=== PATIENT | female | born 1980 | race Caucasian/White ===

== ENCOUNTER 2018-08-15 09:19 | Outpatient (CLI) | payer BC, MEDICAID ==
[2018-08-15 13:23] LABS: BASOPHILS # (AUTO) 0.1 10^3/uL (0.0-0.1); BASOPHILS % (AUTO) 0.9 %; EOSINOPHILS # (AUTO) 0.3 10^3/uL (0.0-0.7); EOSINOPHILS % (AUTO) 3.5 %; HGB - HEMOGLOBIN 14.6 g/dL (12.0-16.0); LYMPHOCYTES # (AUTO) 2.5 10^3/uL (1.5-3.5); LYMPHOCYTES % (AUTO) 30.4 %; MEAN CORPUSCULAR HEMOGLOBIN 30.2 pg (27.0-31.0); MEAN CORPUSCULAR HGB CONC 32.4 g/dL (32.0-36.0); MEAN CORPUSCULAR VOLUME 93.2 fL (81.0-99.0); MEAN PLATELET VOLUME 10.1 fL (7.9-10.8); MONOCYTES # (AUTO) 0.6 10^3/uL (0.0-1.0); NEUTROPHILS # (AUTO) 4.7 10^3/uL (1.5-6.6); NEUTROPHILS % (AUTO) 57.7 %; PLT - PLATELET COUNT 359 10^3/uL (130-450); RED BLOOD COUNT 4.84 10^6/uL (4.20-5.40); RED CELL DISTRIBUTION WIDTH 12.2 % (12.0-15.0); WHITE BLOOD COUNT 8.2 x10^3/uL (4.8-10.8)
[2018-08-15 13:56] LABS: ALBUMIN 4.2 g/dL (3.2-5.5); ALBUMIN/GLOBULIN RATIO 1.3 (1.0-2.2); ALKALINE PHOSPHATASE 57 IU/L (42-121); ALT ALANINE AMINOTRANSFERASE 17 IU/L (10-60); AST ASPARTATE AMINOTRANSFERASE 18 IU/L (10-42); BILIRUBIN,TOTAL 0.6 mg/dL (0.2-1.0); BUN - BLOOD UREA NITROGEN 11 mg/dL (6-20); CALCIUM 9.3 mg/dL (8.5-10.3); CARBON DIOXIDE - CO2 22 mmol/L (21-32); CHLORIDE 108 mmol/L (101-111); CHOL/HDL RATIO 3.8 (<4.4); CHOLESTEROL 187 mg/dL; CREATININE 0.7 mg/dL (0.4-1.0); GFR - MDRD 94 (>89); GLUCOSE 107 mg/dL (70-100); HDL CHOLESTEROL 49 mg/dL; LDL CHOLESTEROL,CALCULATED 126 mg/dL; LDL/HDL RATIO 2.6 (<4.4); SODIUM 138 mmol/L (135-145); TOTAL PROTEIN 7.4 g/dL (6.7-8.2); VLDL CHOLESTEROL 12 mg/dL
[2018-08-15 14:06] LABS: HB2 TOTAL 15.3 g/dL; HEMOGLOBIN A1C 0.5 g/dL; HEMOGLOBIN A1C % 5.1 % (4.6-6.2)
== END 2018-08-15 09:20 | disposition home or self-care (01) ==
LOC: LAB.WCP 09:19
PROVIDERS: ATTEND Family Medicine
DX: E78.5 Hyperlipidemia, unspecified (principal); Z13.1 Encounter for screening for diabetes mellitus
CPT/HCPCS: 36415; 80053; 80061; 83036; 83721; 84443; 85025

== ENCOUNTER 2018-11-21 09:45 | Outpatient (CLI) | payer BC | END 2018-11-21 23:59 | disposition home or self-care (01) | LOC: LAB.R 09:45 | PROVIDERS: ATTEND Family Medicine | DX: R32 Unspecified urinary incontinence (principal) | CPT/HCPCS: 87086 ==

== ENCOUNTER 2018-11-21 23:24 | Emergency (ER) | payer BC ==
[2018-11-22] MEDS ORDERED: KETOROLAC 30 MG/ML VIAL IM STA
[2018-11-22] MEDS ORDERED: ACETAMINOPHEN 325 MG TABLET PO STA
[2018-11-22] MEDS ORDERED: METHOCARBAMOL 500 MG TABLET PO STA (00:01)
--- NOTE | 2018-11-22 00:04 | ED Physician Documentation ---
History of Present Illness - Stated complaint Stated Complaint: SHOULDER/NECK PX - Chief complaint Chief Complaint: Ext Problem - Additonal information Additional information: This is a 38-year-old female with a history of hysterectomy, who presents with pain in her left upper back and shoulder. Patient was cleaning her bathroom and she reached out to grab something and she developed pain in her left back just medial to her shoulder blade which radiates up towards her trapezius muscle and also over on her deltoid. When she abducts her shoulder, or twists her arm she has increased pain in this region. She denies weakness. She states that initially happened she had a little bit of tingling over the area and this resolved. She denies shortness of breath, denies any impact to the area. No headache at this time. Review of Systems Constitutional: denies: Fever Musculoskeletal: reports: Back pain Neurologic: denies: Focal weakness, Numbness Immunocompromised: denies: Immunocompromised PD PAST MEDICAL HISTORY - Past Medical History Past Medical History: Yes Cardiovascular: Other Respiratory: Asthma Neuro: Migraines, Fainting Endocrine/Autoimmune: None GI: Pancreatitis, Other MANUFACTURE SPECIALIST: Miscarriage(s) : Incontinence HEENT: None Psych: Depression, Anxiety, ADD/ADHD Musculoskeletal: Chronic back pain Derm: None Other Past Medical History: "hole in heart" - Past Surgical History Past Surgical History: Yes General: Cholecystectomy /MANUFACTURE SPECIALIST: Hysterectomy HEENT: Tonsil/Adenoidectomy - Present Medications Home Medications: Ambulatory Orders Medication Instructions Recorded Confirmed Acetaminophen 650 mg PO Q6HR #30 tablet 11/22/18 Ibuprofen 600 mg PO Q6H PRN #30 tablet 11/22/18 Methocarbamol 500 mg PO TID PRN #15 tablet 11/22/18 - Allergies Allergies/Adverse Reactions: Allergies Allergy/AdvReac Type Severity Reaction Status Date / Time nortriptyline AdvReac Anxiety Verified 11/21/18 23:32 prednisone AdvReac Emesis Verified 11/21/18 23:31 sucralfate AdvReac Cramps Verified 11/21/18 23:32 - Social History Does the pt smoke?: Yes Smoking Status: Current every day smoker Does the pt drink ETOH?: No Does the pt have substance abuse?: No Substance Use and Type: Marijuana - Immunizations Immunizations are current?: Yes - POLST Patient has POLST: No PD ED PE NORMAL - Vitals Vital signs reviewed: Yes - General General: Alert and oriented X 3, No acute distress - HEENT HEENT: Atraumatic, PERRL - Neck Neck: Supple, no meningeal sign - Cardiac Cardiac: RRR - Respiratory Respiratory: No respiratory distress, Clear bilaterally - Abdomen Abdomen: Non distended - Back Back: Other (There is tenderness on the trapezius muscle from the medial insertion site and upper paraspinous region up to the base of the neck and there is also tenderness in the deltoid. Movement of the deltoid reproduces this pain. The trapezius muscle feels tight and knotted.) - Derm Derm: Warm and dry - Extremities Extremities: No deformity - Neuro Neuro: Alert and oriented X 3, Other (5 out of 5 strength with hand squeeze, finger abduction elbow flexion and extension on the upper extremities. Sensation intact to light touch over the distribution of the radial, median, and ulnar nerves.) - Psych Psych: Normal mood, Normal affect Results - Vitals Vitals: Vital Signs - 24 hr 11/21/18 23:29 Temperature 36.8 C Heart Rate 85 Respiratory 16 Rate Blood Pressure 124/68 O2 Saturation 96 Oxygen O2 Source Room air - EKG (time done) 00:35 Other comments: Other comments (Rate 67, rhythm sinus, there is no ST segment elevation or depression, there are no T wave inversions. Intervals within normal limits. Carnation normal.) Procedures - General procedure General procedure: Procedure: Trigger point injection After discussing the risks and benefits of the procedure including infection, bleeding, pneumothorax, patient verbally consented to the procedure. The area of maximal tenderness was located over the trapezius muscle and paraspinous region and was prepped with an alcohol pad. Using a 27-gauge needle 0.5 cc of 1% lidocaine was injected in the 2 areas of maximal tenderness with care taken to stay superficially within the muscle. Afterwards there was no bleeding and patient had no new complaints, she tolerated the procedure well without immediate complication. PD MEDICAL DECISION MAKING - ED course Complexity details: considered differential (Strain, sprain, ACS, pneumothorax) ED course: Patient presents with pain in the trapezius region after reaching out while cleaning her bathroom. She has reproducible tenderness in the trapezius, which is palpably tight. This appears to be a muscle strain. She is low risk for ACS, the symptoms began in her back and are reproducible, and are clearly musculokeletal in origin. Her EKG shows no signs of ischemia or dysrhythmia, her history and work-up are inconsistent with a cardiac cause. Her breathing feels normal toher, her pain is reproducible, and her heart rate and oxygen saturation are within normal limits, she has no signs of DVT in her history and exam again make pulmonary embolism extraordinarily unlikely. Given her normal oxygen saturation her clear breath sounds bilaterally, and the fact that her pain is located over the trapezius and left deltoid, pneumothorax is also extremely unlikely. Patient was given toradol, Tylenol, and methocarbamol, and she had some relief with These medications. Trigger point injection was performed as noted above. Patient is feeling improved and well enough to go home. I prescribed her Tylenol, ibuprofen, and methocarbamol for breakthrough pain, discussed return precautions and supportive care. Patient was discharged home in care of her . Departure - Departure Disposition: , Self Care Clinical Impression: Muscle strain Condition: Good Instructions: Strains Sprains Tx Follow-Up: MAU BIRCH MD [Primary Care Provider] - As Needed Prescriptions: Acetaminophen 650 mg PO Q6HR #30 tablet Ibuprofen 600 mg PO Q6H PRN #30 tablet PRN Reason: Pain Methocarbamol 500 mg PO TID PRN #15 tablet PRN Reason: Pain Comments: You were seen today for neck/back/shoulder pain, you appear to have a strain of your trapezius muscle. You can ice the muscle for the first 24 hours, and afterwards you can try heat or alternating heat and ice. Take Tylenol and ibuprofen as directed, if these are not effective in controlling your pain you may also try some methocarbamol. Methocarbamol can be sedating so do not drive or operate machinery after taking it. If you develop worsening pain, any shortness of breath, weakness in your arm, or other concerning symptoms return to the emergency department.
[2018-11-22] MEDS ORDERED: LIDOCAINE 1% 2 ML VIAL SUBQ STA (00:50)
[2018-11-22 01:20] VITALS: BP 122/70
== END 2018-11-22 01:15 | disposition home or self-care (01) ==
LOC: ED 23:24
DX: S29.012A Strain of muscle and tendon of back wall of thorax, initial encounter (principal); X50.9XXA Other and unspecified overexertion or strenuous movements or postures, initial encounter; Y93.E9 Activity, other interior property and clothing maintenance; Y92.002 Bathroom of unspecified non-institutional (private) residence as the place of occurrence of the external cause; F17.200 Nicotine dependence, unspecified, uncomplicated; R32 Unspecified urinary incontinence
CPT/HCPCS: 20552; 87086; 93005; 96372; 99283; A9270

== ENCOUNTER 2018-12-05 11:01 | Outpatient (CLI) | payer BC ==
--- NOTE | 2018-12-08 00:39 | XRAY Report ---
Reason: NECK PAIN Procedure Date: 12/05/2018 Accession Number: [id number] / [id number] Procedure: XRN - Cervical Spine 2 View CPT Code: FULL RESULT: EXAM: CERVICAL SPINE RADIOGRAPHY EXAM DATE: 12/05/2018 11:31 AM. CLINICAL HISTORY: NECK PAIN. COMPARISONS: None TECHNIQUE: 3 views. FINDINGS: Alignment: No spondylolisthesis or scoliosis. Bones: The cervical vertebral bodies and posterior elements are well visualized from the skull base through C7-T1. No acute displaced fractures. Disks: Disk heights are maintained. Facets: No degenerative disease. Soft Tissues: No prevertebral soft tissue swelling. The visualized lung apices are clear. IMPRESSION: No acute radiographic abnormalities. [facility]
== END 2018-12-05 11:02 | disposition home or self-care (01) ==
LOC: DI.N 11:01
PROVIDERS: ATTEND Family Medicine
DX: M54.2 Cervicalgia (principal)
CPT/HCPCS: 72040